=== PATIENT | male | born 1940 | race Caucasian/White ===

== ENCOUNTER 2016-09-20 13:53 | Emergency (ER) | payer MEDICARE, BC ==
[~2016-09-20] VITALS: Ht 180.3 cm; Wt 104.3 kg
[~2016-09-20 13:53] MED LIST: ASPI-630 PO; ATOR10TA60 PO; EZET10TA18 PO; FENO135C2 PO; IMIP75CA PO; LEVO75CA PO; OMEG500C PO; OMEP20CA9 PO
--- NOTE | 2016-09-20 14:43 | PHYS DOC ---
Past Medical History Past Medical History: CHF, CVA, High Cholesterol, Heart Disease, Vascular Disease, Other Additional Past Medical Histor: "L Leg blockage" bladder problems Past Surgical History: Coronary Bypass Surgery, Other Additional Past Surgical Histo: Prostectomy; "Carotid Surgery x2"; Back Surgery ; Urinary Control System Alcohol Use: None Drug Use: None Adult General Chief Complaint Chief Complaint: OTHER COMPLAINTS [facility] HPI Patient is a 75 year old male who presents by EMS for central chest pain radiating to his back starting this a.m. after he woke around 0700. States it was constant pain all day. He denies prior pain like this. He requested to go to [facility], but was diverted here by EMS due to inability to obtain blood pressure and concern for instability. He is asymptomatic upon arrival. States his symptoms resolved in the ambulance. He denies nausea or vomiting, fever or chills, cough, leg pain or swelling, dyspnea, orthopnea, abdominal pain, palpitations, lightheadedness, trauma. Review of Systems Review of Systems Constitutional: Denies fever or chills [] Eyes: Denies change in visual acuity, redness, or eye pain [] HENT: Denies nasal congestion or sore throat [] Respiratory: Denies cough or shortness of breath [] Cardiovascular: No additional information not addressed in HPI [] GI: Denies abdominal pain, nausea, vomiting, bloody stools or diarrhea [] : Denies dysuria or hematuria [] Musculoskeletal: Denies back pain or joint pain [] Integument: Denies rash or skin lesions [] Neurologic: Denies headache, focal weakness or sensory changes [] Endocrine: Denies polyuria or polydipsia [] Allergies Allergies Allergies Coded Allergies Type Severity Reaction Last Updated Verified fentanyl Allergy Severe Anaphylaxis 05/08/13 Yes Physical Exam Physical Exam Constitutional: Well developed, well nourished, no acute distress, non-toxic appearance. [] HENT: Normocephalic, atraumatic, bilateral external ears normal, oropharynx moist, nose normal. [] Eyes: PERRLA, EOMI. [] Neck: Normal range of motion, supple. [] Cardiovascular:Heart rate regular rhythm [] Lungs & Thorax: Bilateral breath sounds clear to auscultation. No chest wall tenderness [] Abdomen: Bowel sounds normal, soft, no tenderness. [] Skin: Warm, dry, no erythema, no rash. [] Back: No tenderness, no CVA tenderness. [] Extremities: No tenderness, ROM intact, no edema. [] Neurologic: Alert and oriented X 3, normal motor function, normal sensory function, no focal deficits noted. [] Psychologic: Affect normal, judgement normal, mood normal. [] Current Patient Data Vital Signs Vital Signs Date Time Temp Pulse Resp B/P (MAP) Pulse Ox O2 Delivery O2 Flow Rate FiO2 09/20/16 15:36 97 17 110/66 (81) 97 Nasal Cannula 2.0 09/20/16 14:04 98.4 98.4 Course & Med Decision Making Course & Med Decision Making Had discussion at bedside for concern of ACS and need for evaluation. He states he would prefer to be at [facility] as all of his records are there and he does not prefer a workup while here. He states his family will come get him and take him to [facility]. Patient refuses further assessment . Patient is A&O X 4 with no evidence of intoxication and possesses normal capacity and judgement to understand the risks of leaving AMA, which include but not limited to: , damage to organs or limbs, permanent disability, and respiratory failure. I have tried to convince patient to stay for further assessment and treatment, but they refuse to stay. I urged them therefore to seek medical attention and to return here immediately if they change their mind. The patient understands they are welcome to return at any time. The patient has therefore signed the AMA form. This was witnessed and returned to the chart. Dragon Disclaimer Dragon Disclaimer This electronic medical record was generated, in whole or in part, using a voice recognition dictation system. Departure Departure Impression: Primary Impression: Chest pain Disposition: 07 AGAINST MEDICAL ADVICE Condition: GUARDED Referrals: MAULIK WRIGHT MD (PCP) Problem Qualifiers Primary Impression: Chest pain Chest pain type: unspecified Qualified Codes: R07.9 - Chest pain, unspecified Lalitha HUSSEIN MD Sep 20, 2016 14:43
--- NOTE | 2016-09-20 14:54 | EKG ---
[facility] [address] [place] [address] Test Date: 2016-09-20 Test Time: 13:53:14 Pat Name: MARIELLA GIANG Department: Room: Gender: M Bi Data Architect: : 1940 Requested By: Lalitha HUSSEIN Order Number: [id number] Reading MD: Hal Maradiaga Measurements Intervals [place] Rate: 87 P: 0 SD: 144 QRS: 38 QRSD: 120 T: 174 QT: 372 QTc: 448 Interpretive Statements SINUS RHYTHM QRS(T) CONTOUR ABNORMALITY CONSIDER ANTEROLATERAL MYOCARDIAL DAMAGE CANNOT RULE OUT INFERIOR MYOCARDIAL DAMAGE RI6.01 Unconfirmed report Electronically Signed On 09-21-2016 11:26:24 CDT by Hal Maradiaga
[2016-09-20 15:36] VITALS: BP 110/66
== END 2016-09-20 15:55 | disposition left against medical advice (07) ==
LOC: ER 13:53
DX: R07.89 Other chest pain (principal); E78.00 Pure hypercholesterolemia, unspecified; I50.9 Heart failure, unspecified; Z86.73 Personal history of transient ischemic attack (TIA), and cerebral infarction without residual deficits; Z95.5 Presence of coronary angioplasty implant and graft; Z98.890 Other specified postprocedural states; Z88.4 Allergy status to anesthetic agent
CPT/HCPCS: 93005; 99283-25; 99284-25